=== PATIENT | male | born 1965 | race Caucasian/White ===

== ENCOUNTER 2020-11-22 12:56 | Emergency (ER) | payer OTHER ==
[~2020-11-22] VITALS: Ht 180.3 cm; Wt 102.1 kg
[2020-11-22] MEDS ORDERED: PLAVIX 75 MG TA75 MG PO (13:06)
[2020-11-22] MEDS ORDERED: METOPROLOL TAR100 MG PO (13:06)
[2020-11-22] MEDS ORDERED: PRINIVIL20 M1 PO (13:06)
[2020-11-22] MEDS ORDERED: LEXAPRO20 MG PO (13:07)
[2020-11-22] MEDS ORDERED: METFORMIN HCL500 MG PO (13:07)
[2020-11-22] MEDS ORDERED: LIPITOR40 MG PO (13:07)
[2020-11-22 13:24] LABS: HEMOGLOBIN 14.8 gm/dL (14.0-18.0); MCH 29.3 pg (26.0-34.0); MCHC 34.5 g/dL (28.0-37.0); MCV 84.7 fL (80.0-100.0); RBC 5.07 mil/uL (4.50-6.00); RDW-CV 13.7 % (10.5-14.5); WBC 8.5 thou/uL (4.0-11.0)
[2020-11-22 13:37] LABS: CALCIUM 9.2 mg/dL (8.5-10.1); CREATININE 0.9 mg/dL (0.6-1.3)
[2020-11-22 13:38] LABS: ALBUMIN 3.7 g/dL (3.4-5.0); TOTAL BILIRUBIN 0.4 mg/dL (<0.1-1.0); TOTAL PROTEIN 7.5 g/dL (6.4-8.2)
[2020-11-22] MEDS ORDERED: HYDROCODON-ACE1 EAC7 PO (14:26)
[2020-11-22] MEDS ORDERED: FLEXERIL PO (14:26)
[2020-11-22 14:44] VITALS: BP 142/70
== END 2020-11-22 14:47 | disposition home or self-care (01) ==
LOC: M.ERS 12:56
PROVIDERS: Emergency Medicine Emergency Medical Services
DX: M54.6 Pain in thoracic spine (principal); M25.511 Pain in right shoulder; M54.2 Cervicalgia; I10 Essential (primary) hypertension; E11.9 Type 2 diabetes mellitus without complications; Z95.1 Presence of aortocoronary bypass graft; V49.49XA Driver injured in collision with other motor vehicles in traffic accident, initial encounter; Y93.I9 Activity, other involving external motion; Y92.413 State road as the place of occurrence of the external cause; Y99.8 Other external cause status